=== PATIENT | female | born 1950 | race Caucasian/White ===

== ENCOUNTER 2017-01-31 15:40 | Emergency (ER) | payer OTHER, MEDICAID ==
[~2017-01-31] VITALS: Ht 170.2 cm; Wt 67.1 kg
[2017-01-31 15:51] VITALS: BP 174/89
[2017-01-31 16:27] LABS: Basophils # (auto) 0.1 uL; Basophils % (auto) 0.8 % (0.0-2.0); Eosinophils # (auto) 0 uL; Eosinophils % (auto) 0.7 % (0.0-7.0); Hematocrit 38.3 % (36.0-46.0); Hemoglobin 13.2 g/dL (12.2-16.2); Lymphocytes % (auto) 33.4 % (10.0-50.0); Mean Corpuscular Hemoglobin 32.7 pg (28.0-32.0); Mean Corpuscular Hgb Conc. 34.6 g/dL (32.0-36.0); Mean Corpuscular Volume 94.5 fL (80.0-100.0); Mean Platelet Volume 6.7 fL (6.9-10.8); Monocytes # (auto) 0.5 uL; Monocytes % (auto) 7.9 % (0.0-12.0); Neutrophils # (auto) 3.4 uL; Neutrophils % (auto) 57.2 % (37.0-80.0); Nucleated Red Blood Cells % 0.1 %; Platelet Count (auto) 256 10^3/uL (140-450)
[2017-01-31 16:42] LABS: Anion Gap 7 (5-15); BUN/Creatinine Ratio 8.3; Blood Urea Nitrogen 4 mg/dL (7-18); Calcium 8.4 mg/dL (8.5-10.1); Carbon Dioxide 29 mmol/L (21-32); Chloride 87 mmol/L (98-107); GFR African American 167 mL/min; GFR Non-African American 138 mL/min; Glucose 80 mg/dL (74-106); Potassium 3.6 mmol/L (3.5-5.1); Sodium 123 mmol/L (136-145)
[2017-01-31 16:49] LABS: Alkaline Phosphatase 109 U/L (45-117); Aspartate Aminotransferase 12 U/L (15-37); Bilirubin, Total 0.3 mg/dL (0.2-1.0)
== END 2017-01-31 20:42 | disposition left against medical advice (07) ==
LOC: ER 15:40
DX: I10 Essential (primary) hypertension (principal); Z53.21 Procedure and treatment not carried out due to patient leaving prior to being seen by health care provider
CPT/HCPCS: 36415; 80053; 84484; 85025; 93005

== ENCOUNTER → 2020-05-30 | Outpatient (CLI) | payer OTHER, MEDICAID | END | disposition home or self-care (01) | LOC: Rad HDHVI 14:59 | PROVIDERS: ATTEND Internal Medicine Cardiovascular Disease | DX: Z01.810 Encounter for preprocedural cardiovascular examination (principal); R94.31 Abnormal electrocardiogram [ECG] [EKG] | CPT/HCPCS: 93306 ==

== ENCOUNTER → 2020-06-05 | Outpatient (CLI) | payer OTHER, MEDICAID ==
[~2020-06-05] VITALS: Ht 170.2 cm; Wt 77.1 kg
[~2020-06-05] MED LIST: ADENOSINE 65 MG in GIVE UN-DILUTED 0 ML IV ONE; ADENOSINE 90 MG/30 ML INJ IV ONE
== END | disposition home or self-care (01) ==
LOC: Rad HDHVI 13:57
PROVIDERS: ATTEND Internal Medicine Cardiovascular Disease
DX: Z01.810 Encounter for preprocedural cardiovascular examination (principal); I10 Essential (primary) hypertension; F17.210 Nicotine dependence, cigarettes, uncomplicated; Z82.49 Family history of ischemic heart disease and other diseases of the circulatory system
CPT/HCPCS: 78452; 93005; 96374; 96375; A9500; J0153

== ENCOUNTER → 2022-07-21 | Emergency (ER) | payer OTHER, MEDICAID ==
[~2022-07-21] VITALS: Ht 170.2 cm; Wt 68.1 kg
[~2022-07-21] MED LIST changes: -ADENOSINE 65 MG in GIVE UN-DILUTED 0 ML IV ONE; -ADENOSINE 90 MG/30 ML INJ IV ONE; +OXY10CRT PO; +oxyCODONE ER 10 MG TAB PO ONE
[2022-07-21 20:30] VITALS: BP 166/69
== END | disposition home or self-care (01) ==
LOC: ER 16:33
DX: S93.402A Sprain of unspecified ligament of left ankle, initial encounter (principal); S80.01XA Contusion of right knee, initial encounter; Z88.0 Allergy status to penicillin; W18.39XA Other fall on same level, initial encounter; Y93.89 Activity, other specified; Y92.89 Other specified places as the place of occurrence of the external cause; Y99.8 Other external cause status
CPT/HCPCS: 73562; 73610

== ENCOUNTER 2024-11-01 11:26 | Inpatient (IN) | payer OTHER, MEDICAID ==
[~2024-11-01] VITALS: Ht 167.6 cm; Wt 68.2 kg
[~2024-11-01 11:26] MED LIST changes: +ALPR0.5T7 PO; +AMLO1TAB22 PO; +CEPH500C PO; +FER325T PO; +FLUO-125 PO; +SIMV10TA20 PO; -oxyCODONE ER 10 MG TAB PO ONE
--- NOTE | 2024-11-01 11:38 | ED.PDOC ---
Musculoskeletal HPI Comments This is a 74 year old female JULIA presenting to the ED with chief complaint of left knee pain. Patient reports that she had lost balance 4 days ago, causing her to fall and injure her left knee due to hyperextension. Patient relays that since then she has been experiencing left knee pain and swelling, worsening over time. Patient denies any numbness, weakness, tingling, LOC, or any further injury. Chief Complaint: Lower Extremity Time Seen by MD: 11:35 Primary Care Provider: LIVIA Dennis Notes: Nurses Notes, Tool Clerk Notes, Medications, Allergies Allergies: Coded Allergies: Prednisone (Verified Allergy, Severe, ANGRY, 01/31/17) Home Meds Active Scripts Oxycodone Hcl (OxyCONTIN ER Tablet) 10 Mg Tb, 0.5 TAB PO TIDP PRN, #6 TAB Prov:TIFFANY CHAMBERLAIN PAC 07/21/22 Reported Medications Fluoxetine Hcl (Fluoxetine Hcl) 20 Mg Cap, 60 MG PO DAILY for 30 Days, MG 04/10/24 Ferrous Sulfate (FERROUS SULFATE) 325 Mg Tb, 1 TAB PO DAILY, #30 TAB 3 Refills 04/10/24 Cephalexin Monohydrate (Cephalexin) 500 Mg Cap, 500 MG PO TID, MG 04/10/24 Amlodipine Besylate (Amlodipine Besylate) 5 Mg Tab, 10 MG PO DAILY for 30 Days, MG 04/10/24 Alprazolam (Alprazolam) 0.5 Mg Tab, 1 TAB PO TID PRN for ANXIETY, #90 TAB 04/10/24 Simvastatin (Simvastatin) 10 Mg Tab, PO QPM, #30 TAB 5 Refills 04/10/24 Information Source: Patient, Emergency Med Personnel Mode of Arrival: EMS Location: Left Extremity Location: Knee Timing: Days Prehospital treatment: None Severity: Moderate Able to Move Extremity: Yes Bear Weight: Limited Pain: Moderate Mechanism: Hyperextension Circumstances: Fall Onset of Symptoms: After Trauma Symptoms: Swelling, Pain DVT Risk Factors: NONE History of: Arthritis Past Medical History PAST MEDICAL HISTORY: Arthritis, COPD, CVA, High Lipids, HTN Past Medical History (Other): Brain aneurysm Surgical History (Other): Stent in brain [employer] DEPARTMENT HEAD History: No Pertinent [employer] ASSIST[employer] DEPARTMENT HEAD History Family History Family History: Reviewed,noncontributory to illness, No family hx of Cancer, No family hx of DM, No family hx of Heart carolyn, No family hx of HTN, No family hx ofKidney carolyn, No family hx of Liver carolyn, No family hx of Lung carolyn, No family hx of Stroke Social History Smoker: Cigarettes Alcohol: Denies ETOH Use Drugs: Denies Drug Use Lives In: Home Constitutional: denies: chills, diaphoresis, fatigue, fever, malaise, sweats, weakness, others EENTM: denies: blurred vision, double vision, ear bleeding, ear discharge, ear drainage, ear pain, ear ringing, eye pain, eye redness, hearing loss, mouth pain, mouth swelling, nasal discharge, nose bleeding, nose congestion, nose pain, photophobia, tearing, throat pain, throat swelling, voice changes, others Respiratory: denies: cough, hemoptysis, orthopnea, SOB at rest, shortness of breath, SOB with excertion, stridor, wheezing, others Cardiovascular: denies: chest pain, dizzy spells, diaphoresis, Dyspnea on exertion, edema, irregular heart beat, left arm pain, lightheadedness, palpitations, PND, syncope, others Gastrointestinal: denies: abdomen distended, abdominal pain, blood streaked bowels, constipated, diarrhea, dysphagia, difficulty swallowing, hematemesis, melena, nausea, poor appetite, poor fluid intake, rectal bleeding, rectal pain, vomiting, others Genitourinary: denies: abnormal vagina bleeding, burning, dyspareunia, dysuria, flank pain, frequency, hematuria, incontinence, pain, , vagina discharge, urgency, others Neurological: reports: dizziness; denies: fainting, headache, left sided numbness, left sided weakness, numbness, paresthesia, pre-existing deficit, right sided numbness, right sided weakness, seizure, speech problems, tingling, tremors, weakness, others Musculoskeletal: reports: others (Left knee pain); denies: back pain, gout, joint pain, joint swelling, muscle pain, muscle stiffness, neck pain Integumetry: denies: bruises, change in color, change in hair/nails, dryness, laceration, lesions, lumps, rash, wounds, others Allergic/Immunocompromised: denies: Difficulty Healing, Frequent Infections, Hives, Itching, others Hematologic/Lymphatic: denies: anemia, blood clots, easy bleeding, easy bruising, swollen glands, others Endocrine: denies: excessive hunger, excessive sweating, excessive thirst, excessive urination, flushing, intolerance to cold, intolerance to heat, unexplained weight gain, unexplained weight loss, others Psychiatric: denies: anxiety, bipolar disorder, depression, hopeless, panic dis order, schizophrenia, sleepless, suicidal, others All Other Systems: Reviewed and Negative Physical Exam General Appearance: Moderate Distress, Normal HEENT: Normal ENT Inspection, Pharynx Normal, TMs Normal Neck: Full Range of Motion, Non-Tender, Normal, Normal Inspection Respiratory: Chest Non-Tender, Lungs Clear, No Accessory Muscle Use, No Respiratory Distress, Normal Breath Sounds Cardiovascular: No Edema, No JVD, No Murmur, No Gallop, Normal Peripheral Pulses, Regular Rate/Rhythm Breast Exam: Deferred Gastrointestinal: No Organomegaly, Non Tender, No Pulsatile Mass, Normal Bowel Sounds, Soft Genitalia: Deferred Pelvic: Deferred Rectal: Deferred Extremities: No calf tenderness, Normal capillary refill, Non-tender, Swelling (Left knee) Musculoskeletal : Apperance: Normal Neurologic: Alert, voice over announcer II-XII nml as Tested, No Motor Deficits, Normal Affect, Normal Mood, No Sensory Deficits Cerebellar Function: NOT DONE Reflexes: NOT DONE Skin: Dry, Normal Color, Warm Peripheral Pulses: 3+ Radial (R), 3+ Radial (L) Lymphatic: No Adenopathy Was a procedure done? Was a procedure done?: No Differential Diagnosis EXT Differential Diagnosis: Fracture, Sprain, Dislocation, Contusion, Strain X-Ray, Labs, Meds, VS Vital Signs Date Time Temp Pulse Resp B/P (MAP) Pulse Ox O2 Delivery O2 Flow Rate FiO2 11/01/24 12:21 74 19 96 Room Air* 0 21 11/01/24 12:02 78 21 100 Room Air 11/01/24 12:02 97.8 78 21 190/88 (122) 100 97.8 11/01/24 11:29 97.6 84 17 158/88 (111) 97 97.6 Lab Test 11/01/24 12:48 Range/Units White Blood Count Pending Red Blood Count Pending Hemoglobin Pending Hematocrit Pending Mean Corpuscular Volume Pending Mean Corpuscular Hemoglobin Pending Mean Corpuscular Hemoglobin Concent Pending Red Cell Distribution Width Pending Platelet Count Pending Mean Platelet Volume Pending Neutrophils (%) (Auto) Pending Lymphocytes (%) (Auto) Pending Monocytes (%) (Auto) Pending Basophils (%) (Auto) Pending Neutrophils # (Auto) Pending Lymphocytes # (Auto) Pending Monocytes # (Auto) Pending Sodium Level Pending Potassium Level Pending Chloride Level Pending Carbon Dioxide Level Pending Anion Gap Pending Blood Urea Nitrogen Pending Creatinine Pending Glomerular Filtration Rate Calc Pending BUN/Creatinine Ratio Pending Serum Glucose Pending Calcium Level Pending Troponin I High Sensitivity Pending Current Medications Medications (Trade) Dose Ordered Sig/Robbin Route Start Time Stop Time Status Last Admin Acetaminophen/ Hydrocodone Bitart ([place] 10/325MG Tab) 1 tab ONCE ONCE PO 11/01/24 11:45 11/01/24 11:46 DC 11/01/24 12:28 Ondansetron HCl (Zofran Po) 4 mg ONCE ONCE PO 11/01/24 12:00 11/01/24 12:01 DC 11/01/24 12:29 Patient alert. Complaining of headache. Fell and landed on head left knee. Vitals stable. X-ray of the knee does show chronic changes. CT of the head reviewed does not show any acute changes. Possibly will need MRI. She does have difficulty breathing. Continues to smoke cigarettes. Counseled patient on effects of smoking cigarettes for 15 minutes. Blood pressure elevated. Was given hydralazine. Was given pain medication. Reviewed her previous visit. Explained to the patient. Continue monitoring. Time of 1ST Reevaluation: 12:35 Reevaluation 1ST: Unchanged Patient Education/Counseling: Diagnosis, Treatment Family Education/Counseling: No Family Present Additional Information Previous visits reviewed: 04/09/24 intractable headache The following tests were ordered, and results were reviewed by me: Left knee XR Additional Information was gathered from interviewing the following independent historians: EMS I reviewed and agreed with the following test results read by other providers: Left knee XR I discussed treatment and results with medical personnel and: patient Comprehensive systems review obtained and negative except for what is stated in the HPI. Departure 1 Departure Time of Disposition: 13:04 Impression: Primary Impression: Hypertensive urgency Additional Impressions: Head injury Qualified Codes: S09.90XA - Unspecified injury of head, initial encounter Osteoarthritis Qualified Codes: M19.91 - Primary osteoarthritis, unspecified site Disposition: ADMITTED INPATIENT Admit to: Med Surg Condition: Guarded Critical Care Note Critical Care Time?: Yes (90 min-critical care time only) Critical care comment: Monitoring blood pressure Stability Stability form required: No Heart Score Heart Score: Heart Score Response (Comments) Value History N/A 0 EKG N/A 0 Age N/A 0 Risk Factors N/A 0 Troponin N/A 0 Total 0 I personally scribed for EVETTE VEGA MD ([email or web address]) on 11/01/24 at 11:38. Electronically submitted by Rubio Dumont ([email or web address]). EVETTE VEGA MD Nov 01, 2024 11:38
--- NOTE | 2024-11-01 12:20 | DVH ---
CHEST RADIOGRAPH Indication: sob Technique: Single frontal view of the chest was obtained COMPARISON: None FINDINGS: Lines and Tubes: Thoracic spinal stimulator device in-situ. Lungs: Clear Pleura: No effusion. No pneumothorax. Cardiomediastinal contours: Vascular calcifications of the aorta. Bones: Unremarkable IMPRESSION: No acute disease.
[2024-11-01 12:21] VITALS: PULSE 74; RESP 19; O2SAT 96
--- NOTE | 2024-11-01 12:23 | DVH ---
EXAM: XY L KNEE 2V XRAY CLINICAL INDICATION: fall TECHNIQUE: XY L KNEE 2V XRAY Comparison: XY R KNEE 3V XRAY on DOS: 07/21/22 FINDINGS/IMPRESSION: There is no evidence of acute fracture or dislocation. Moderate left knee osteoarthritis The alignment is anatomical. There is no radiopaque foreign body.
[2024-11-01] MEDS: HYDROcodone-ACET 10/325MG TAB PO ONE (12:28)
[2024-11-01] MEDS: ONDANSETRON ODT 4 MG TAB PO ONE (12:29)
--- NOTE | 2024-11-01 12:47 | DVH ---
CLINICAL INFORMATION: 74 years old, Female; FALL INJURY. TECHNIQUE: Axial imaging was obtained through the brain without contrast. Coronal and sagittal reform atted images were obtained, reviewed, and stored. Images were reviewed in brain and bone windows. Al l CT scans at this medical facility are performed using dose modulation techniques as appropriate to a performed exam including the following: Automated exposure control was utilized; adjustment of the MA and/or KV according to patient size; and use of iterative reconstruction technique. CTDIvol = 60.2 6 mGy DLP = 1186.14 mGy-cm COMPARISON: CT HEAD WITHOUT CONTRAST on DOS: 04/09/24 FINDINGS: There is no acute intracranial hemorrhage. No mass effect or midline shift. Scattered areas of hypoattenuation are seen in the periventricular and subcortical white matter, which are nonspecif ic but most likely sequelae of small vessel ischemic disease. Partially empty sella. Previously seen hyperdense structure in the right parasellar region, subsequently demonstrated to be a partially thr ombosed aneurysm, is no longer visualized. There has been interval intervention involving the caverno us, clinoid, and ophthalmic segments of the right internal carotid artery since the prior exam with s tent in place. The ventricles and sulci are within normal limits in size for age. Basal cisterns are patent. The calvarium is unremarkable. Paranasal sinuses and mastoid air cells are clear. IMPRESSION: 1. No CT evidence of acute intracranial abnormality. 2. Nonacute findings as described above.
[2024-11-01 13:02] LABS: Hematocrit 35.6 % (36.0-46.0); Hemoglobin 11.9 g/dL (12.2-16.2); Mean Corpuscular Hemoglobin 30.7 pg (28.0-32.0); Mean Corpuscular Volume 91.9 fL (80.0-100.0); Nucleated Red Blood Cells % 0.1 %
[2024-11-01 13:11] LABS: Anion Gap 12 (5-15); Carbon Dioxide 24 mmol/L (20-31); Chloride 91 mmol/L (98-107); Potassium 3.0 mmol/L (3.5-5.1); Sodium 127 mmol/L (136-145)
[2024-11-01 13:12] LABS: Calcium 10.6 mg/dL (8.7-10.4)
[2024-11-01 13:16] LABS: BUN/Creatinine Ratio 9.5 (10.0-20.0); Blood Urea Nitrogen 9 mg/dL (9-23); Glucose 97 mg/dL (74-106)
[2024-11-01] MEDS: hydrALAZINE HCL 20 MG/ML VL IV ONE (13:44)
[2024-11-01 13:52] LABS: Urine Protein, UAD Negative (Negative)
[2024-11-01 16:07] VITALS: BP 155/89; PULSE 86; RESP 16; TEMP 96.6; O2SAT 98
[2024-11-01] MEDS: HYDROcodone-ACET 5/325MG TAB PO PRN (16:17)
[2024-11-01] MEDS ORDERED: GABA-339 PO (16:43)
[2024-11-01] MEDS ORDERED: FLUO60TA7 PO (16:43)
[2024-11-01] MEDS ORDERED: MIRT-94 OR (16:43)
[2024-11-01] MEDS ORDERED: NIFE1TAB30 PO (16:43)
[2024-11-01] MEDS ORDERED: ASPI-543 PO (16:43)
[2024-11-01] MEDS ORDERED: LOSA-535 PO (16:43)
[2024-11-01] MEDS ORDERED: NITR0.4S29 SL (16:43)
[2024-11-01 17:25] VITALS: BP 155/89; PULSE 86; RESP 20; TEMP 96.6; O2SAT 98
--- NOTE | 2024-11-01 18:41 | DVHHP2 ---
History of Present Illness Reason for Visit: Left knee pain History of Present Illness 74-year-old female initially presented with complaints of left knee pain. Patient reports yesterday her left knee hyperextended and she has been having pain since then. On arrival patient's blood pressure was noted to be in the 190s. She also reports occasional dizziness over the past couple of days. No chest pain or palpitations. No shortness a breath. No other acute complaints. Past Medical History CVA, dyslipidemia, hypertension, COPD, arthritis, brain aneurysm Past Surgical History Brain stent Family History Noncontributory Smoke: <1 pack per day ALCOHOL: none Drugs: None Lives: with Family Review of Systems Review of Systems Review of systems are currently negative otherwise addressed in HPI. Allergies: Coded Allergies: Prednisone (Verified Allergy, Severe, ANGRY, 01/31/17) Medications Current Medications Medications Dose Ordered Sig/Robbin Route Start Time Stop Time Status Last Admin Dose Admin Amlodipine Besylate 10 mg DAILY PO 11/02/24 10:00 Hydralazine HCl 10 mg Q6HP PRN IV 11/01/24 14:45 Ferrous Sulfate 325 mg DAILY PO 11/02/24 10:00 Fluoxetine HCl 40 mg DAILY PO 11/02/24 10:00 Atorvastatin Calcium 10 mg HS PO 11/01/24 22:00 Ondansetron HCl 4 mg Q4HP PRN IV 11/01/24 14:45 Enoxaparin Sodium 40 mg DAILY SC 11/02/24 10:00 Acetaminophen 650 mg Q6HP PRN PO 11/01/24 14:45 Acetaminophen/ Hydrocodone Bitart 1 tab Q6HPRN PRN PO 11/01/24 14:45 11/01/24 16:17 1 TAB Exam Vital Signs Vital Signs Date Time Temp Pulse Resp B/P (MAP) Pulse Ox O2 Delivery O2 Flow Rate FiO2 11/01/24 17:25 96.6 86 20 155/89 (111) 98 96.6 11/01/24 15:57 Room Air* 0 21 Exam Gen: 74-year-old female in mild distress Skin: Warm, dry, normal color and texture, no rash. HEENT: Normocephalic atraumatic, mucous membranes moist and pink. Neck: Cervical and supraclavicular nodes normal without enlargement, trachea is midline, thyroid gland is normal without masses. Pulmonary: Clear to auscultation and percussion bilaterally. Cardiac: Regular rate and rhythm. No murmur Abdomen: Soft, nontender, nondistended, bowel sounds present all 4 quadrants, no guarding, no rigidity, no organomegaly. Extremities: No cyanosis, clubbing, left knee tenderness with mild swelling Neuro: Cranial nerves II through XII grossly intact, normal affect and speech, no focal motor deficits. Labs/Xrays ORDERING PHYSICIAN: EVETTE VEGA MD PROCEDURE(s): HWOCT - HEAD WITHOUT CONTRAST REASON: FALL INJURY ORDER NUMBER(s): [id number], ACCESSION NUMBER(s): [id number] CLINICAL INFORMATION: 74 years old, Female; FALL INJURY. TECHNIQUE: Axial imaging was obtained through the brain without contrast. Coronal and sagittal reformatted images were obtained, reviewed, and stored. Images were reviewed in brain and bone windows. All CT scans at this medical facility are performed using dose modulation techniques as appropriate to a performed exam including the following: Automated exposure control was utilized; adjustment of the MA and/or KV according to patient size; and use of iterative reconstruction technique. CTDIvol = 60.26 mGy DLP = 1186.14 mGy-cm COMPARISON: CT HEAD WITHOUT CONTRAST on DOS: 04/09/24 FINDINGS: There is no acute intracranial hemorrhage. No mass effect or midline shift. Scattered areas of hypoattenuation are seen in the periventricular and subcortical white matter, which are nonspecific but most likely sequelae of small vessel ischemic disease. Partially empty sella. Previously seen hyperdense structure in the right parasellar region, subsequently demonstrated to be a partially thrombosed aneurysm, is no longer visualized. There has been interval intervention involving the cavernous, clinoid, and ophthalmic segments of the right internal carotid artery since the prior exam with stent in place. The ventricles and sulci are within normal limits in size for age. Basal cisterns are patent. The calvarium is unremarkable. Paranasal sinuses and mastoid air cells are clear. IMPRESSION: 1. No CT evidence of acute intracranial abnormality. 2. Nonacute findings as described above. RING PHYSICIAN: EVETTE VEGA MD PROCEDURE(s): CXRP - CHEST PORTABLE REASON: sob ORDER NUMBER(s): [id number], ACCESSION NUMBER(s): [id number] CHEST RADIOGRAPH Indication: sob Technique: Single frontal view of the chest was obtained COMPARISON: None FINDINGS: Lines and Tubes: Thoracic spinal stimulator device in-situ. Lungs: Clear Pleura: No effusion. No pneumothorax. Cardiomediastinal contours: Vascular calcifications of the aorta. Bones: Unremarkable IMPRESSION: No acute disease. RING PHYSICIAN: EVETTE VEGA MD PROCEDURE(s): LKNE2 - L KNEE 2V XRAY REASON: fall ORDER NUMBER(s): [id number], ACCESSION NUMBER(s): [id number] EXAM: XY L KNEE 2V XRAY CLINICAL INDICATION: fall TECHNIQUE: XY L KNEE 2V XRAY Comparison: XY R KNEE 3V XRAY on DOS: 07/21/22 FINDINGS/IMPRESSION: There is no evidence of acute fracture or dislocation. Moderate left knee osteoarthritis The alignment is anatomical. There is no radiopaque foreign body. Labs Test 11/01/24 12:48 11/01/24 12:22 Range/Units White Blood Count 6.4 4.4-10.8 10^3/uL Red Blood Count 3.88 L 4.0-5.20 10^6/uL Hemoglobin 11.9 L 12.2-16.2 g/dL Hematocrit 35.6 L 36.0-46.0 % Mean Corpuscular Volume 91.9 80.0-100.0 fL Mean Corpuscular Hemoglobin 30.7 28.0-32.0 pg Mean Corpuscular Hemoglobin Concent 33.4 32.0-36.0 g/dL Red Cell Distribution Width 15.8 H 11.8-14.3 % Platelet Count 394 140-450 10^3/uL Mean Platelet Volume 6.6 L 6.9-10.8 fL Neutrophils (%) (Auto) 70.5 37.0-80.0 % Lymphocytes (%) (Auto) 21.5 10.0-50.0 % Monocytes (%) (Auto) 6.9 0.0-12.0 % Eosinophils (%) (Auto) 0.5 0.0-7.0 % Basophils (%) (Auto) 0.6 0.0-2.0 % Neutrophils # (Auto) 4.5 1.6-8.6 10 ^3/uL Lymphocytes # (Auto) 1.4 0.4-5.4 10 ^3/uL Monocytes # (Auto) 0.4 0-1.3 10 ^3/uL Eosinophils # (Auto) 0 0-0.8 10 ^3/uL Basophils # (Auto) 0 0-0.2 10 ^3/uL Nucleated Red Blood Cells 0.1 % Sodium Level 127 L 136-145 mmol/L Potassium Level 3.0 L 3.5-5.1 mmol/L Chloride Level 91 L 98-107 mmol/L Carbon Dioxide Level 24 20-31 mmol/L Anion Gap 12 5-15 Blood Urea Nitrogen 9 9-23 mg/dL Creatinine 0.95 0.550-1.02 mg/dL Glomerular Filtration Rate Calc 63 >90 mL/min BUN/Creatinine Ratio 9.5 L 10.0-20.0 Serum Glucose 97 74-106 mg/dL Calcium Level 10.6 H 8.7-10.4 mg/dL Troponin I High Sensitivity 3 L </=34 ng/L Urine Color Colorless Yellow Urine Clarity Clear Clear Urine pH 6.0 5.0-9.0 Urine Specific [place] 1.006 1.001-1.035 Urine Protein Negative Negative Urine Ketones Negative Negative Urine Blood Negative Negative /uL Urine Nitrite Negative Negative Urine Bilirubin Negative Negative Urine Urobilinogen Normal Negative mg/dL Urine Leukocyte Esterase Negative Negative /uL Urine RBC 1 0 - 4 /hpf Urine Microscopic WBC < 1 0-5 /HPF Urine Squamous Epithelial Cells Few <5 /hpf Urine Bacteria None seen None Seen /hpf Urine Glucose Normal Normal mg/dL SEPSIS Sepsis Screen Date sepsis recognized/suspect: Nov 01, 2024 Time Sepsis recognized/suspect: 9 Recent Procedure: No On Antibiotic Therapy: No Respiratory Rate >20: No Heart Rate >90: No Temp<36 C (96.8 F) or >38.3 C: No SBP <90 or MAP <65 mmHG: No New Acute Mental Status Change: No Is the patient on CPAP, BIPAP,: No Physician Orders L Knee 2v Xray (11/01/24 11:43) Chest Portable (11/01/24 11:53) Head Without Contrast (11/01/24 12:00) Amlodipine Tablet (Norvasc Tablet) (11/02/24 10:00) Hydralazine Injection (Apresoline Inject (11/01/24 14:45) Ferrous Sulfate Tablet (11/02/24 10:00) Fluoxetine Capsule (Prozac Capsule) (11/02/24 10:00) Admit (11/01/24 14:33) Ondansetron Hcl (Zofran) (11/01/24 14:45) Enoxaparin Sodium (Lovenox) (11/02/24 10:00) Cardiac Diet-2gna,Lofat,Lochol (11/01/24 Dinner) Echo 2d Mode Cardiac Dop (11/01/24 14:33) Condition: Stable (11/01/24 14:33) Acetaminophen Tablet (Tylenol Tablet) (11/01/24 14:45) Bedrest With Bathroom Privileg (11/01/24 14:33) Hydrocodone-Acet 5/325mg Tab (Harrison 5/32 (11/01/24 14:45) Atorvastatin (Lipitor) (11/01/24 22:00) Basic Metabolic Panel (11/02/24 04:00) * [facility] Consult (11/01/24 ) Vital Signs Date Time Temp Pulse Resp B/P (MAP) Pulse Ox O2 Delivery O2 Flow Rate FiO2 11/01/24 17:25 96.6 86 20 155/89 (111) 98 96.6 11/01/24 16:07 96.6 86 16 155/89 (111) 98 96.6 11/01/24 15:57 Room Air* 0 21 11/01/24 14:29 97.7 84 18 153/81 (105) 100 97.7 11/01/24 13:45 97.4 77 18 195/102 (133) 96 97.4 11/01/24 13:44 195/102 11/01/24 12:21 74 19 96 Room Air* 0 21 11/01/24 12:02 78 21 100 Room Air 11/01/24 12:02 97.8 78 21 190/88 (122) 100 97.8 11/01/24 11:29 97.6 84 17 158/88 (111) 97 97.6 Laboratory Tests Test 11/01/24 12:48 White Blood Count 6.4 10^3/uL (4.4-10.8) Medications Medications Dose Ordered Sig/Robbin Route Start Time Stop Time Status Last Admin Dose Admin Acetaminophen/ Hydrocodone Bitart 1 tab ONCE ONCE PO 11/01/24 11:45 11/01/24 11:46 DC 11/01/24 12:28 1 TAB Acetaminophen/ Hydrocodone Bitart 1 tab Q6HPRN PRN PO 11/01/24 14:45 11/01/24 16:17 1 TAB Hydralazine HCl 10 mg ONCE ONCE IV 11/01/24 13:15 11/01/24 13:16 DC 11/01/24 13:44 10 MG Ondansetron HCl 4 mg ONCE ONCE PO 11/01/24 12:00 11/01/24 12:01 DC 11/01/24 12:29 4 MG Assessment/Plan Assessment/Plan Assessment Hypertensive urgency Left knee osteoarthritis Hypokalemia Plan Admit the patient to Med surge to the hospitalist As needed antihypertensives Resume home medications Echocardiogram pending Replete electrolytes Pain management Continue treatment per orders. Plan discussed with: Patient My Orders Orders - CARLY RAYCNP Procedure Category Date Status Time Amlodipine Tablet PHA 11/02/24 In Process (Norvasc Tablet) 10:00 Hydralazine Injection PHA 11/01/24 In Process (Apresoline Inject 14:45 Ferrous Sulfate Tablet PHA 11/02/24 In Process 10:00 Fluoxetine Capsule PHA 11/02/24 In Process (Prozac Capsule) 10:00 Admit ADMIT 11/01/24 Transmitted 14:33 Ondansetron Hcl PHA 11/01/24 In Process (Zofran) 14:45 Enoxaparin Sodium PHA 11/02/24 In Process (Lovenox) 10:00 Cardiac DIET 11/01/24 Transmitted Diet-2gna,Lofat,Lochol Dinner Echo 2d Mode Cardiac US 11/01/24 Logged DOP 14:33 Condition: Stable SYMONE 11/01/24 In Process 14:33 Acetaminophen Tablet PHA 11/01/24 In Process (Tylenol Tablet) 14:45 Bedrest With Bathroom SYMONE 11/01/24 In Process Privileg 14:33 Hydrocodone-Acet PHA 11/01/24 In Process 5/325mg Tab (Harrison 14:45 Atorvastatin (Lipitor) PHA 11/01/24 In Process 22:00 Basic Metabolic Panel LAB 11/02/24 Verified 04:00 * [employer] [facility] CONS 11/01/24 Transmitted Consult Date of Service: Nov 01, 2024 Billing Provider: CARLY RAY Common Visit Codes: [id number] INP/OBS CARE (HIGH) CARLY RAY Nov 01, 2024 18:41
[2024-11-01] MEDS: ACETAMINOPHEN 325 MG TAB PO PRN (19:46)
[2024-11-01 20:00] VITALS: PULSE 94; RESP 18; O2SAT 97
[2024-11-01 21:00] VITALS: BP 139/69; PULSE 94; RESP 18; TEMP 97.7; O2SAT 97
[2024-11-01] MEDS: MELATONIN 5 MG TAB PO ONE (21:25)
[2024-11-01] MEDS: ATORVASTATIN 20 MG TAB PO SCH (21:25)
[2024-11-01] MEDS: CALCIUM CARB 500 MG CHEW TAB PO PRN (21:25)
[2024-11-01] MEDS: hydrALAZINE HCL 20 MG/ML VL IV PRN (23:57)
[2024-11-02] VITALS (8 sets, daily range): BP systolic 134–187; BP diastolic 73–103; PULSE 88–105; RESP 17–20; TEMP 97–98.6; O2SAT 91–98
[2024-11-02] MEDS: ONDANSETRON HCL 4 MG/2 ML VIAL IV PRN (02:45)
[2024-11-02 05:47] LABS: Anion Gap 10 (5-15); Carbon Dioxide 24 mmol/L (20-31); Potassium 3.8 mmol/L (3.5-5.1)
[2024-11-02 05:49] LABS: Calcium 10.7 mg/dL (8.7-10.4); Chloride 97 mmol/L (98-107); Sodium 131 mmol/L (136-145)
[2024-11-02 05:53] LABS: BUN/Creatinine Ratio 10.9 (10.0-20.0); Blood Urea Nitrogen 11 mg/dL (9-23); Glucose 104 mg/dL (74-106)
[2024-11-02] MEDS: HYDROmorphone HCL 2 MG/ML VL/or syr IV ONE ×2 (06:13→11:37)
--- NOTE | 2024-11-02 09:18 | ECG ---
[facility] Test Date: 2024-11-02 Test Time: 05:39:03 Pat Name: JOLEEN GALARZA Department: Room: 0276 A Gender: F Rn Bsn: AIDAN : 1950 Requested By: CARLY RAY Order Number: [id number] Reading MD: Hector Lomax Measurements Intervals [place] Rate: 88 P: 74 HI: 150 QRS: 3 QRSD: 94 T: 57 QT: 366 QTc: 443 Interpretive Statements Sinus rhythm Ventricular premature complex Minimal ST depression, lateral leads Minimal ST elevation, anterior leads Artifact in lead(s) II,III,aVF and baseline wander in lead(s) V3 Electronically Signed On 11-07-2024 13:51:16 PDT by Hector Lomax Please click the below link to view image of tracing.
[2024-11-02] MEDS: FERROUS SULFATE 325mg EC TAB PO SCH (09:27)
[2024-11-02] MEDS: ENOXAPARIN SOD 40 MG/0.4 ML SYRINGE SC SCH (09:28)
[2024-11-02 13:11] LABS: Hematocrit 36.6 % (36.0-46.0); Hemoglobin 12.5 g/dL (12.2-16.2); Mean Corpuscular Hemoglobin 31.0 pg (28.0-32.0); Mean Corpuscular Volume 90.8 fL (80.0-100.0); Nucleated Red Blood Cells % 0.1 %
[2024-11-02 13:30] LABS: Bilirubin, Direct 0.1 mg/dL (<0.3); Magnesium 2.2 mg/dL (1.6-2.6); Total Protein 7.2 g/dL (5.7-8.2)
[2024-11-02 13:31] LABS: Albumin 4.9 g/dL (3.2-4.8); Alkaline Phosphatase 129.0 U/L (46-116); Bilirubin, Total 0.5 mg/dL (0.2-1.0)
[2024-11-02 13:46] LABS: Alanine Aminotransferase 11.0 U/L (7-40)
[2024-11-02] MEDS ORDERED: ALPRAZolam 0.5 MG TAB PO PRN (14:15)
--- NOTE | 2024-11-02 14:16 | DVHPNRES ---
Progress Note Date Seen: Nov 02, 2024 Resident Creating Document: RIZWAN MCINTOSH RESIDENT Medical Necessity Reason Pt with a Central, PICC or Fol: No Subjective Review of Systems 74-year-old female Came to the emergency department due to complaints of left knee pain. Patient reports that 4 days ago she had a fall as she felt slightly dizzy. She tried again to regain balance but could not maintain equilibrium after which she fell twice again. She fell on her left leg and since then has been having knee pain which has been increasing, was 10/ 10 intensity radiates downwards to hurts her feet. On arrival in the ER her blood pressure was noted to be high which systolic pressure being in the 190s. She does not complain of any chest pain, shortness of breath, headaches, or palpitations. she also reports that she has cervical spinal problems and goals for pain therapy. on inquiry she reports that her blood pressure has been normal when recorded at home so far and that she has been mostly regular with her hypertensive medication which is amlodipine. Past Medical History CVA, dyslipidemia, hypertension, COPD, arthritis, brain aneurysm with stent Past Surgical History Brain stent, lumbar stand Family History: reviewed and noncontributory to the management of this case Smoking history: she used to smoke 7 cigarettes per day from her 30s but since April 2024 she has been having 2 cigarettes per day ALCOHOL: none Drugs: None Lives: with Family Allergies: Prednisolone Home medications: Tizanidine, gabapentin, tramadol, amlodipine, alprazolam, melatonin, inhalers for her COPD that she can not recall ROS: Patient was seen and examined by me at the bedside today. Overnight events reviewed. Patient complains that she could not sleep yesterday night because of the pain all over body specially her knee and that Court[place] alone is not helping. She also complains of a slight headache in the morning which was really bad at night. She also reports that her neck pain because of her cervical spine was bad yesterday. Patient also complains that she feels slightly dizzy when walking back from the bathroom needs to take support from the hughes to walk back to the bed. Rest of the ROS is negative Objective vital signs Vital Sign Date Time Temp Pulse Resp B/P (MAP) Pulse Ox O2 Delivery O2 Flow Rate FiO2 11/02/24 11:37 88 20 133/72 11/02/24 08:52 97.6 92 97.6 11/01/24 20:00 Room Air* 0 21 Total Intake and Output 11/01/24 11/01/24 11/02/24 15:00 23:00 07:00 Intake Total 400 ml Balance 400 ml medications Current Medications Medications Dose Ordered Sig/Robbin Route Start Time Stop Time Status Last Admin Dose Admin Amlodipine Besylate 10 mg DAILY PO 11/02/24 10:00 11/02/24 09:27 10 MG Hydralazine HCl 10 mg Q6HP PRN IV 11/01/24 14:45 11/02/24 06:12 10 MG Ferrous Sulfate 325 mg DAILY PO 11/02/24 10:00 11/02/24 09:27 325 MG Fluoxetine HCl 40 mg DAILY PO 11/02/24 10:00 11/02/24 09:27 40 MG Atorvastatin Calcium 10 mg HS PO 11/01/24 22:00 11/01/24 21:25 10 MG Ondansetron HCl 4 mg Q4HP PRN IV 11/01/24 14:45 11/02/24 09:27 4 MG Enoxaparin Sodium 40 mg DAILY SC 11/02/24 10:00 11/02/24 09:28 40 MG Acetaminophen 650 mg Q6HP PRN PO 11/01/24 14:45 11/02/24 03:56 650 MG Acetaminophen/ Hydrocodone Bitart 1 tab Q6HPRN PRN PO 11/01/24 14:45 11/01/24 23:56 1 TAB Calcium Carbonate 500 mg Q6HPRN PRN PO 11/01/24 21:15 11/01/24 21:25 500 MG Alprazolam 0.5 mg TID PRN PO 11/02/24 14:15 UNV Fluoxetine HCl 60 mg DAILY PO 11/03/24 10:00 UNV Mirtazapine 15 mg HS PO 11/02/24 22:00 UNV Patient Own Medication 600 mg TID PO 11/02/24 22:00 UNV Hydromorphone HCl 0.25 mg Q6HPRN PRN IV 11/02/24 14:15 UNV Examination Patient is lying in the bed Gen: 74-year-old female in mild distress Skin: Warm, dry, normal color and texture, no rash. HEENT: Normocephalic atraumatic, mucous membranes moist and pink. Neck: Cervical and supraclavicular nodes normal without enlargement, trachea is midline, thyroid gland is normal without masses. Pulmonary: Clear to auscultation and percussion bilaterally. Cardiac: Regular rate and rhythm. No murmur Abdomen: Soft, nontender, nondistended, bowel sounds present all 4 quadrants, no guarding, no rigidity, no organomegaly. Extremities: No cyanosis, clubbing, left knee tenderness with mild swelling Neuro: Cranial nerves II through XII grossly intact, normal affect and speech, no focal motor deficits. laboratory and microbiology Laboratory Tests 11/02/24 12:25 11/02/24 04:23 Test 11/02/24 04:23 Range/Units Serum Glucose 104 74-106 mg/dL Labs and/or images reviewed: Labs reviewed by me, Image(s) reviewed by me Problem List/Assessment/Plan Problem List/Assessment/Plan #Dizziness likely orthostatic/ brain aneurysm #Mechanical fall causing left knee pain -X-ray of the knee shows Moderate left knee osteoarthritis -CT head shows No CT evidence of acute intracranial abnormality. -carotid duplex -MRI brain without contrast -Court[place], hydromorphone given for pain management #Hypertensive urgency -Hydralazine, and blood -Echo #Left knee osteoarthritis - outpatient follow up #Hypokalemia-correcting - potassium supplement given GI prophylaxis: not indicated DVT prophylaxis: Lovenox 40 mg subcutaneous daily Diet: regular Goals of care discussed with the patient for more than 27 minutes: Full code status Case discussed with Dr. Jesus, patient and nurse. Plan discussed with: Patient, Other (rn) Date of Service: Nov 02, 2024 Billing Provider: PUJA JESUS MD Common Visit Codes: [id number] INP/OBS CARE(HIGH) RIZWAN MCINTOSH RESIDENT Nov 02, 2024 14:16 PUJA JESUS MD Nov 03, 2024 00:24
[2024-11-02] MEDS: HYDROmorphone HCL 2 MG/ML VL/or syr IV PRN (16:45)
--- NOTE | 2024-11-02 18:54 | DVH ---
Indication: dizziness Technique: Real-time ultrasound images of the neck vessels with gross-scale, color and wave Doppler we re obtained. Comparison: None Findings: There is moderate bilateral atherosclerotic plaque The following peak systolic velocities were recorded in cm/sec: Right internal carotid: 195 distal right ICA Right common carotid: 73 Right external carotid: 112 Right internal/common carotid ratio: 2.7 Left internal carotid: 138 mid right ICA Left common carotid: 74 Left external carotid: 181 Left internal/common carotid ratio: 1.9 Right vertebral artery: Patent with normal antegrade direction of flow. Left vertebral artery: Patent with normal antegrade direction of flow. Impression: Approximately 50-69% stenosis of the bilateral internal carotid arteries by velocity criteria more pr onounced within the right internal carotid artery. Recommend CT angiogram of the neck to further thomas luate.
[2024-11-02] MEDS: GABAPENTIN 300 MG CAP PO SCH (20:53)
[2024-11-02] MEDS ORDERED: MIRTAZAPINE 30 MG TAB PO SCH (22:00)
[2024-11-03] VITALS (7 sets, daily range): BP systolic 115–164; BP diastolic 72–94; PULSE 84–125; RESP 16–20; TEMP 98.1–98.9; O2SAT 92–97
[2024-11-03 08:10] LABS: Anion Gap 10 (5-15); BUN/Creatinine Ratio 9.3 (10.0-20.0); Calcium 10.1 mg/dL (8.7-10.4); Carbon Dioxide 26 mmol/L (20-31); Glucose 100 mg/dL (74-106); Total Protein 6.7 g/dL (5.7-8.2)
[2024-11-03 08:11] LABS: Albumin 4.5 g/dL (3.2-4.8); Bilirubin, Total 0.5 mg/dL (0.2-1.0)
[2024-11-03 08:12] LABS: Alanine Aminotransferase < 9 U/L (7-40); Alkaline Phosphatase 123 U/L (46-116); Blood Urea Nitrogen 8 mg/dL (9-23); Chloride 97 mmol/L (98-107); Potassium 3.3 mmol/L (3.5-5.1); Sodium 133 mmol/L (136-145)
[2024-11-03 08:23] LABS: Hematocrit 35.4 % (36.0-46.0); Hemoglobin 12.1 g/dL (12.2-16.2); Mean Corpuscular Hemoglobin 31.3 pg (28.0-32.0); Mean Corpuscular Volume 91.8 fL (80.0-100.0); Nucleated Red Blood Cells % 0.0 %
[2024-11-03] MEDS: LORazepam 2MG/ML-1ML VIAL IV ONE (12:00)
[2024-11-03] MEDS: HYDROmorphone HCL 2 MG/ML VL/or syr IV PRN (12:38)
--- NOTE | 2024-11-03 14:56 | DVH ---
MR lumbar spine without contrast Comparison: CT brain done 11/01/2024 and MR brain done 04/10/2024 HISTORY: fall injury TECHNIQUE: MR was performed with a surface coil at 1.5 T magnet. Sagittal, axial and coronal T1 and T 2-weighted images were obtained. FINDINGS: No areas of restricted diffusion on diffusion-weighted images. No areas of T2 star signal hypointensity on gradient echo images to indicate acute or remote hemorrha ge On FLAIR imaging sequences there is T2 signal hyperintensity along the ventricular margins extending into the centrum semiovale and noland radiata. No hydrocephalus or midline shift No extra-axial fluid collections. The cortical sulcal markings are slightly prominent. Orbits paranasal sinuses sella and cerebellopontine angles unremarkable in appearance IMPRESSION: 1. No acute intracranial pathology. Atrophy with periventricular leukoencephalopathy.
--- NOTE | 2024-11-03 16:02 | DVHPN2 ---
Subjective The patient is seen and examined at bedside. She complain of severe dizziness. She said she had history of vertigo in the past. Daughter on the phone and spoke with me in length regarding to her plan of care and her MRI imaging Reviewed: Care Plan, H&P, Labs, Medications, Previous Orders, Radiology Changes from previous H/P or p: No Changes Objective Vitals Vital Signs Date Time Temp Pulse Resp B/P (MAP) Pulse Ox O2 Delivery O2 Flow Rate FiO2 11/03/24 13:08 66 15 126/68 11/03/24 13:00 98.2 92 98.2 11/03/24 08:00 Room Air* 0 21 Intake/Output Intake and Output 11/03/24 07:00 Intake Total 0 ml Balance 0 ml Intake Oral 0 ml General Appearance: Alert, Cooperative, No acute distress HEENT: Atraumatic, PERRLA, EOMI Neck: Supple Cardiovascular: Regular rate, Normal S1, Normal S2, No murmurs, Gallops, Rubs Abdomen: Normal bowel sounds, Soft, No tenderness Neuro: Cranial nerves 3-12 NL Psych/Mental Status: Mental status NL Medications Current Medications Medications Dose Ordered Sig/Robbin Route Start Time Stop Time Status Last Admin Dose Admin Amlodipine Besylate 10 mg DAILY PO 11/02/24 10:00 11/03/24 09:47 10 MG Hydralazine HCl 10 mg Q6HP PRN IV 11/01/24 14:45 11/02/24 21:27 10 MG Ferrous Sulfate 325 mg DAILY PO 11/02/24 10:00 11/03/24 09:47 325 MG Atorvastatin Calcium 10 mg HS PO 11/01/24 22:00 11/02/24 20:53 10 MG Ondansetron HCl 4 mg Q4HP PRN IV 11/01/24 14:45 11/02/24 09:27 4 MG Enoxaparin Sodium 40 mg DAILY SC 11/02/24 10:00 11/03/24 09:47 40 MG Acetaminophen 650 mg Q6HP PRN PO 11/01/24 14:45 11/02/24 21:31 650 MG Acetaminophen/ Hydrocodone Bitart 1 tab Q6HPRN PRN PO 11/01/24 14:45 11/01/24 23:56 1 TAB Calcium Carbonate 500 mg Q6HPRN PRN PO 7/24/25 21:15 11/01/24 21:25 500 MG Alprazolam 0.5 mg TID PRN PO 11/02/24 14:15 Mirtazapine 15 mg HS PO 11/02/24 22:00 Hold Gabapentin 600 mg BID PO 11/02/24 22:00 11/03/24 09:46 600 MG Fluoxetine HCl 40 mg DAILY PO 11/03/24 10:00 11/03/24 09:46 40 MG Hydromorphone HCl 1 mg Q4HPRN PRN IV 11/03/24 12:00 11/03/24 12:38 1 MG Laboratory Results Laboratory Tests 11/03/24 06:44 Chemistry Test 11/03/24 06:44 Albumin 4.5 g/dL (3.2-4.8) Calcium Level 10.1 mg/dL (8.7-10.4) Total Protein 6.7 g/dL (5.7-8.2) LFT Test 11/03/24 06:44 Alanine Aminotransferase (ALT) < 9 U/L (7-40) Alkaline Phosphatase 123 U/L (46-116) H Aspartate Amino Transferase (AST) 14 U/L (13-40) Total Bilirubin 0.5 mg/dL (0.2-1.0) Urinalysis Test 11/01/24 12:22 Urine Color Colorless (Yellow) Urine Clarity Clear (Clear) Urine pH 6.0 (5.0-9.0) Urine Specific [place] 1.006 (1.001-1.035) Urine Protein Negative (Negative) Urine Ketones Negative (Negative) Urine Blood Negative /uL (Negative) Urine Nitrite Negative (Negative) Urine Bilirubin Negative (Negative) Urine Urobilinogen Normal mg/dL (Negative) Urine Leukocyte Esterase Negative /uL (Negative) Urine RBC 1 /hpf (0 - 4) Urine Microscopic WBC < 1 /HPF (0-5) Urine Squamous Epithelial Cells Few /hpf (<5) Urine Bacteria None seen /hpf (None Seen) Urine Glucose Normal mg/dL (Normal) Labs and/or images reviewed: Labs reviewed by me Assessment/Plan Assessment/Plan #Dizziness likely orthostatic/ brain aneurysm #Mechanical fall causing left knee pain -X-ray of the knee shows Moderate left knee osteoarthritis -CT head shows No CT evidence of acute intracranial abnormality. -carotid duplex -MRI brain without contrast -[place], hydromorphone given for pain management #Hypertensive urgency -Hydralazine, and blood -Echo #Left knee osteoarthritis - outpatient follow up #Hypokalemia-correcting - potassium supplement given GI prophylaxis: not indicated DVT prophylaxis: Lovenox 40 mg subcutaneous daily Diet: regular Continuing current management. I reviewed the MRI results of her brain with remained normal, non acute process. I discussed in length with daughter and patient regarding to her aneurysm which is stable per imaging starting. I will give the patient meclizine 25 mg Q 8 hours p.r.n. for dizziness and nausea or vomiting. I anticipate to discharge this patient home in a.m.. Encouraged her to be out of bed and ambulate with help This medical document was created using an electronic medical record system with [employer] computerized dictation system. Although this document has been carefully reviewed, there may still be some phonetic and typographical errors. These areas are purely typographical due to imperfections of the software programs, and do not reflect any compromise in the patient's medical care. Plan discussed with: Patient My Orders Orders - PUJA FRANCISCO MD Procedure Category Date Status Time Hydromorphone PHA 11/03/24 In Process Injection (Dilaudid 12:00 Date of Service: Nov 03, 2024 Billing Provider: PUJA FRANCISCO MD Common Visit Codes: [id number] INP/OBS CARE(HIGH) PUJA FRANCISCO MD Nov 03, 2024 16:02
[2024-11-03] MEDS ORDERED: MECLIZINE HCL 25 MG TAB PO PRN (18:15)
--- NOTE | 2024-11-03 18:56 | DVHSR ---
APPROVED REPORT EXAM: Two-dimensional and M-mode echocardiogram with Doppler and color Doppler. Blood Pressure: 184/103 mmHg INDICATION Hypertension RISK FACTORS Height: 5'6", Weight: 165 DIMENSIONS LVDd3.8 (3.8-5.7cm)LA (2D)4.1 (1.9-4.0cm)Aortic Root3.2 (2.0-3.7cm) LVDs2.6 (2.5-4.0cm)LA (MM) (1.9-4.0cm)Aortic Cusp Exc1.9 (1.5-2.0cm) EF (%) 61.0 (55-70%)Rt. Atrium3.5 (1.9-4.0cm)Asc. Aorta cm IVSd1.2 (0.7-1.1cm)RV (D) (1.8-2.4cm) Mitral Valve MitralMitral Stenosis E/A ratio0.02D MVAcm2 Aortic Valve Aortic ValveAortic Stenosis V11.46m/Natalie Mean GR.8mmHg V21.80m/Natalie Peak GR.13mmHg LVOT Diameter1.8 (1.8-2.4cm)Doppler AVA2.06cm2 Pulmonic Valve V20.91m/s Other Information Quality : Technically LimitedRhythm : Technically limited study due to patient moving. Conclusion Sinus rhythm. Left atrial enlargement. Sigmoid septum. Normal LV function. Normal RV function. Ejection fraction of 60%. Valves are normal. No pericardial effusion masses or vegetations.
[2024-11-03] MEDS ORDERED: POLYETHYLENE GLYCOL 17 GM PWDR PO PRN (20:15)
[2024-11-04 01:00] VITALS: BP 121/69; PULSE 92; RESP 18; TEMP 98.3; O2SAT 95
[2024-11-04 05:11] VITALS: BP 146/87; PULSE 97; RESP 48; TEMP 98.3; O2SAT 94
[2024-11-04 08:00] VITALS: PULSE 87; RESP 16; O2SAT 97
[2024-11-04 09:00] VITALS: BP 130/89; PULSE 109; RESP 18; TEMP 96.6; O2SAT 92
[2024-11-04 09:49] LABS: Alanine Aminotransferase 10 U/L (7-40); Albumin 4.5 g/dL (3.2-4.8); Anion Gap 9 (5-15); BUN/Creatinine Ratio 13.6 (10.0-20.0); Bilirubin, Total 0.4 mg/dL (0.2-1.0); Blood Urea Nitrogen 11 mg/dL (9-23); Calcium 10.2 mg/dL (8.7-10.4); Carbon Dioxide 27 mmol/L (20-31); Glucose 101 mg/dL (74-106); Total Protein 6.6 g/dL (5.7-8.2)
[2024-11-04 09:50] LABS: Alkaline Phosphatase 124 U/L (46-116); Chloride 96 mmol/L (98-107); Potassium 3.4 mmol/L (3.5-5.1); Sodium 132 mmol/L (136-145)
[2024-11-04] MEDS: POTASSIUM CHL 20 Meq TABLET PO ONE (10:50)
[2024-11-04] MEDS: IOHEXOL 350 MG/ML 100ML IJ ONE (11:50)
[2024-11-04 12:45] VITALS: BP 134/91; PULSE 90; RESP 20; TEMP 98; O2SAT 92
--- NOTE | 2024-11-04 13:40 | DVH ---
CT CT ANGIO NECK CONTRAST INDICATION: carotid artery stenosis EXAM DATE: 11/04/2024 12:11 PM COMPARISON: CT ANGIO HEAD/NECK on DOS: 04/09/24 RADIATION DOSE: CTDIvol: 23.29 mGy, DLP: 658.01 mGy*cm PROCEDURE: CT angiogram images were obtained of the head and neck. Coronal and sagittal reformatted i mages were created as well as 3D and/or MIP reconstructions. All CT scans at this medical facility are performed using dose modulation techniques as appropriate t o a performed exam including the following: Automated exposure control was utilized; adjustment of th e MA and/or KV according to patient size; and use of iterative reconstruction technique. FINDINGS: Neck: Small horizontally oriented linear structure at the proximal right internal carotid artery coul d be a carotid artery web. The common carotid, internal carotid, external carotid, and vertebral arteries are otherwise normal in caliber. The vertebral arteries are codominant. The visualized intracranial arteries are normal. T here is no other evidence of contrast extravasation, filling defects, stenosis, or dissection. The pharynx and airway are normal. The thyroid, submandibular, and parotid glands appear normal. No l ymphadenopathy is seen. The visualized intracranial structures are unremarkable. 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 Otherwise, no acute abnormal CT angiographic findings of the head and neck.
[2024-11-04] MEDS ORDERED: MECL-90 PO (14:18)
--- NOTE | 2024-11-04 14:33 | DVHDSRES ---
Discharge Summary Date of Admission Resident Creating Document: RIZWAN MCINTOSH RESIDENT Nov 01, 2024 at 14:33 Date of Discharge: Nov 04, 2024 Admitting Diagnosis #Dizziness likely orthostatic/ brain aneurysm Labs/Diagnostic Data: Laboratory Results Test 11/04/24 08:44 11/03/24 06:44 11/02/24 12:25 11/01/24 12:48 Sodium Level 132 mmol/L (136-145) Potassium Level 3.4 mmol/L (3.5-5.1) Chloride Level 96 mmol/L (98-107) Carbon Dioxide Level 27 mmol/L (20-31) Anion Gap 9 (5-15) Blood Urea Nitrogen 11 mg/dL (9-23) Creatinine 0.81 mg/dL (0.550-1.02) Glomerular Filtration Rate Calc 77 mL/min (>90) BUN/Creatinine Ratio 13.6 (10.0-20.0) Serum Glucose 101 mg/dL (74-106) Calcium Level 10.2 mg/dL (8.7-10.4) Total Bilirubin 0.4 mg/dL (0.2-1.0) Aspartate Amino Transferase (AST) 13 U/L (13-40) Alanine Aminotransferase (ALT) 10 U/L (7-40) Alkaline Phosphatase 124 U/L (46-116) Total Protein 6.6 g/dL (5.7-8.2) Albumin 4.5 g/dL (3.2-4.8) White Blood Count 4.2 10^3/uL (4.4-10.8) Red Blood Count 3.85 10^6/uL (4.0-5.20) Hemoglobin 12.1 g/dL (12.2-16.2) Hematocrit 35.4 % (36.0-46.0) Mean Corpuscular Volume 91.8 fL (80.0-100.0) Mean Corpuscular Hemoglobin 31.3 pg (28.0-32.0) Mean Corpuscular Hemoglobin Concent 34.1 g/dL (32.0-36.0) Red Cell Distribution Width 15.6 % (11.8-14.3) Platelet Count 422 10^3/uL (140-450) Mean Platelet Volume 7.2 fL (6.9-10.8) Neutrophils (%) (Auto) 65.6 % (37.0-80.0) Lymphocytes (%) (Auto) 23.2 % (10.0-50.0) Monocytes (%) (Auto) 9.5 % (0.0-12.0) Eosinophils (%) (Auto) 0.7 % (0.0-7.0) Basophils (%) (Auto) 1.0 % (0.0-2.0) Neutrophils # (Auto) 2.7 10 ^3/uL (1.6-8.6) Lymphocytes # (Auto) 1.0 10 ^3/uL (0.4-5.4) Monocytes # (Auto) 0.4 10 ^3/uL (0-1.3) Eosinophils # (Auto) 0 10 ^3/uL (0-0.8) Basophils # (Auto) 0 10 ^3/uL (0-0.2) Nucleated Red Blood Cells 0.0 % Hemoglobin A1c 5.6 % A1C (<5.7) Magnesium Level 2.2 mg/dL (1.6-2.6) Direct Bilirubin 0.1 mg/dL (<0.3) B-Type Natriuretic Peptide 99.29 pg/mL (0-100) Thyroid Stimulating Hormone (TSH) 1.54 uIU/mL (0.55-4.78) Troponin I High Sensitivity 3 ng/L (</=34) Test 11/01/24 12:22 Urine Color Colorless (Yellow) Urine Clarity Clear (Clear) Urine pH 6.0 (5.0-9.0) Urine Specific [place] 1.006 (1.001-1.035) Urine Protein Negative (Negative) Urine Ketones Negative (Negative) Urine Blood Negative /uL (Negative) Urine Nitrite Negative (Negative) Urine Bilirubin Negative (Negative) Urine Urobilinogen Normal mg/dL (Negative) Urine Leukocyte Esterase Negative /uL (Negative) Urine RBC 1 /hpf (0 - 4) Urine Microscopic WBC < 1 /HPF (0-5) Urine Squamous Epithelial Cells Few /hpf (<5) Urine Bacteria None seen /hpf (None Seen) Urine Glucose Normal mg/dL (Normal) Other Laboratory Tests 11/04/24 08:44 11/03/24 06:44 Brief Hx & Hospital Course: 74-year-old female Came to the emergency department due to complaints of left knee pain. Patient reports that 4 days ago she had a fall as she felt slightly dizzy. She tried again to regain balance but could not maintain equilibrium after which she fell twice again. She fell on her left leg and since then has been having knee pain which has been increasing, was 10/ 10 intensity radiates downwards to hurts her feet. On arrival in the ER her blood pressure was noted to be high which systolic pressure being in the 190s. She does not complain of any chest pain, shortness of breath, headaches, or palpitations. she also reports that she has cervical spinal problems and goals for pain therapy. on inquiry she reports that her blood pressure has been normal when recorded at home so far and that she has been mostly regular with her hypertensive medication which is amlodipine. Brief history of hospitalization: Patient came in with dizziness likely orthostatic/brain aneurysm, mechanical fall causing left knee pain. X-ray of the knee showed moderate left knee osteoarthritis. A CT head showed no evidence of acute intracranial abnormality. Carotid duplex was done which showed 50-69% stenosis of the bilateral internal carotid arteries by velocity criteria more pronounced within the right internal carotid artery. 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 an MRI of the brain was also done without contrast which showed No acute intracranial pathology, Atrophy with periventricular leukoencephalopathy. We have asked her to follow up with her PCP and repeat the carotid Doppler in 6 months' time. we gave the patient [place], hydromorphone for pain management. For patient's hypertensive urgency we started her on hydralazine. An echo was done which was normal and her ejection fraction was 60%. For patient's left knee osteoarthritis we have counseled her to follow up outpatient. For her hypokalemia we gave her potassium supplemented corrected it. The patient is now stable to be discharged. We have counseled her regarding Fall precautions. For her carotid stenosis we have asked her to follow up with the PCP. We have also prescribed the patient meclizine PRN. Patient is communicated understanding and is being discharged. Patient is lying in the bed General Appearance: Alert, Oriented X3, Cooperative, Not in acute distress HEENT: Atraumatic, Mucous membranes moist/pink Respiratory: Clear to auscultation, Normal air movement, No added sounds Cardiovascular: Regular rate, Normal S1, Normal S2, No murmurs Abdominal: Active bowel sounds, Soft, no distention, no tenderness Extremities: No edema, Normal pulses, No tenderness/swelling Skin: No Significant rash, except past surgical scars Neuro: Normal speech, no sensorimotor deficits Psych/Mental Status: Mental status NL, Mood NL Nurse was there as chemistry manager during examination Operations or Procedures EXAM: XY L KNEE 2V XRAY CLINICAL INDICATION: fall FINDINGS/IMPRESSION: -There is no evidence of acute fracture or dislocation. -Moderate left knee osteoarthritis -The alignment is anatomical. There is no radiopaque foreign body. CXRP - CHEST PORTABLE REASON: sob ORDER NUMBER(s): [id number], ACCESSION NUMBER(s): [id number] CHEST RADIOGRAPH Indication: sob IMPRESSION: No acute disease. PROCEDURE(s): HWOCT - HEAD WITHOUT CONTRAST REASON: FALL INJURY IMPRESSION: 1. No CT evidence of acute intracranial abnormality. 2. Nonacute findings as described above. Carotid Doppler study Indication: dizziness Impression: Approximately 50-69% stenosis of the bilateral internal carotid arteries by velocity criteria more pronounced within the right internal carotid artery. Recommend CT angiogram of the neck to further evaluate. Brain MRI IMPRESSION: No acute intracranial pathology. Atrophy with periventricular leukoencephalopathy. 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 Otherwise, no acute abnormal CT angiographic findings of the head and neck. RING PHYSICIAN: CARLY RAY PROCEDURE(s): ECIDC - ECHO 2D MODE CARDIAC DOP REASON: hypertension ORDER NUMBER(s): [id number], ACCESSION NUMBER(s): [id number] APPROVED REPORT EXAM: Two-dimensional and M-mode echocardiogram with Doppler and color Doppler. Blood Pressure: 184/103 mmHg INDICATION Hypertension RISK FACTORS Height: 5'6", Weight: 165 DIMENSIONS LVDd 3.8 (3.8-5.7cm) LA (2D) 4.1 (1.9-4.0cm) Aortic Root 3.2 (2.0- 3.7cm) LVDs 2.6 (2.5-4.0cm) LA (MM) (1.9-4.0cm) Aortic Cusp Exc 1.9 (1.5- 2.0cm) EF (%) 61.0 (55-70%) Rt. [place]rium 3.5 (1.9-4.0cm) Asc. Aorta cm IVSd 1.2 (0.7-1.1cm) RV (D) (1.8-2.4cm) Mitral Valve Mitral Mitral Stenosis E/A ratio 0.0 2D MVA cm2 Aortic Valve Aortic Valve Aortic Stenosis V1 1.46m/s AO Mean GR. 8mmHg V2 1.80m/s AO Peak GR. 13mmHg LVOT Diameter 1.8 (1.8-2.4cm) Doppler OSWALD 2.06cm2 Pulmonic Valve V2 0.91m/s Other Information Quality : Technically Limited Rhythm : Technically limited study due to patient moving. Conclusion Sinus rhythm. Left atrial enlargement. Sigmoid septum. Normal LV function. Normal RV function. Ejection fraction of 60%. Valves are normal. No pericardial effusion masses or vegetations. SIGNED BY: AIDEN RAZA Sr., MD SIGNED DATE/TIME: 11/03/24 7068 Condition at Discharge: Stable Final Diagnosis/Problems List #Dizziness likely orthostatic/ brain aneurysm #Mechanical fall causing left knee pain #Hypertensive urgency #Left knee osteoarthritis #Hypokalemia-correcting #Dizziness likely orthostatic/ brain aneurysm #Mechanical fall causing left knee pain #Hypertensive urgency #Left knee osteoarthritis #Hypokalemia-correcting Discharge Disposition: Home Discharge Instruct/Medications Diet: Consistent carbohydrate, Cardiac 2g Na,low cholest Activity: No Restrictions, As Tolerated Follow Up/Referral: followup with PCP follow up in discharge clinic Medications: meclizine prn continue home medication Scheduled Aspirin (Aspir-Low), 81 MG PO DAILY, (Reported) Ferrous Sulfate (Ferrous Sulfate), 1 TAB PO DAILY, (Reported) Fluoxetine HCl (Fluoxetine), 40 MG PO DAILY, (Reported) Fluoxetine Hcl (Fluoxetine Hcl), 60 MG PO DAILY, (Reported) Gabapentin (Gabapentin), 600 MG PO TID, (Reported) Losartan Potassium (Losartan Potassium), 100 MG PO DAILY, (Reported) Mirtazapine (Remeron), 15 MG OR HS, (Reported) Nifedipine (Nifedipine Er), 1 TAB PO DAILY, (Reported) Nitroglycerin (Ntrostat Sublingual), 0.4 MG SL PRN, (Reported) Scheduled PRN Alprazolam (Alprazolam), 1 TAB PO TID PRN for ANXIETY, (Reported) Meclizine Hcl (Meclizine Hcl), 25 MG PO [id number] PRN Discharge Statement: "Patient was advised to return to the ER or call 911 if any headaches, dizziness, shortness of breath, chest pain, abdominal pain, bleeding, fevers, or worsening of medical condition. Patient was counseled about treatment plan, medications, possible side effects, patientverbalized understanding. All questions were answered to the best of my ability. This discharge took greater then 30 minutes in planning, reviewing documentation, counseling the patient, and discussing with other team members." ASSESSMENT ASSESSMENT Assessment #Dizziness likely orthostatic/ brain aneurysm #Mechanical fall causing left knee pain #Hypertensive urgency #Left knee osteoarthritis #Hypokalemia-correcting Date of Service: Nov 04, 2024 Billing Provider: PUJA FRANCISCO MD Common Visit Codes: 74285-MDK/OBS DISCH DAY >30min RIZWAN MCINTOSH Nov 04, 2024 14:33 PUJA FRANCISCO MD Nov 06, 2024 22:49
[2024-11-04 16:55] VITALS: BP 136/80; PULSE 65; RESP 14; TEMP 97.8; O2SAT 98
== END 2024-11-04 17:24 | disposition home or self-care (01) | DRG 312 ==
LOC: EDBD 11:26 → ER 11:28 → OVERFLOW 14:33 → WEST WING 14:39
PROVIDERS: ADMIT Internal Medicine; ATTEND Internal Medicine
DX: I95.1 Orthostatic hypotension (principal); M17.12 Unilateral primary osteoarthritis, left knee; I67.1 Cerebral aneurysm, nonruptured; E87.6 Hypokalemia; I16.0 Hypertensive urgency; J44.9 Chronic obstructive pulmonary disease, unspecified; F17.210 Nicotine dependence, cigarettes, uncomplicated; S09.8XXA Other specified injuries of head, initial encounter; I10 Essential (primary) hypertension; E78.5 Hyperlipidemia, unspecified; Z88.8 Allergy status to other drugs, medicaments and biological substances; Z79.2 Long term (current) use of antibiotics; Z86.73 Personal history of transient ischemic attack (TIA), and cerebral infarction without residual deficits; Z79.899 Other long term (current) drug therapy; W18.39XA Other fall on same level, initial encounter; Y93.89 Activity, other specified; Y92.89 Other specified places as the place of occurrence of the external cause; Y99.8 Other external cause status
CPT/HCPCS: 36415; 70450; 70498; 70551; 71045; 73560; 80048; 80053; 80076; 81001; 83036; 83735; 83880; 84443; 84484; 85025; 93005; 93306; 93886; 96374; 99291; 99292; G0378; J2405; Q0162